=== PATIENT | male | born 1960 | race Caucasian/White ===

== ENCOUNTER → 2018-12-26 08:13 | Outpatient (CLI) | payer MEDICARE, SELFPAY ==
--- NOTE | 2018-12-26 08:20 | US_ITS ---
PROCEDURE: US SOFT TISSUE HEAD AND NECK CLINICAL INDICATION: LIPOMA Palpable area along posterior neck COMPARISON: No exams were available for comparison FINDINGS: There is a spindle shaped 3 by 0.9 x 3 cm area of heterogeneous echogenicity in the subcutaneous region at the palpable abnormality. This is somewhat hypoechoic with linear areas of increased echogenicity and may represent a lipoma. This could be confirmed with CT if clinically warranted. 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
== END ==
PROVIDERS: PCP Family Medicine; Visit Provider Family Medicine
DX: D17.1 Benign lipomatous neoplasm of skin and subcutaneous tissue of trunk (principal)
CPT/HCPCS: 76536

== ENCOUNTER → 2020-12-09 11:31 | Outpatient (CLI) | payer MEDICARE, SELFPAY ==
[2020-12-09 11:53] LABS: Basophils % 0.5 % (0.1-2.0); Eosinophils # 0.1 K/mm3 (0.0-0.4); Eosinophils % 2.1 % (0.1-12.0); Hematocrit 53.6 % (42.0-52.0); Hemoglobin 17.6 g/dL (14.1-18.0); Lymphocytes # 2.3 K/mm3 (0.7-4.5); Lymphocytes % 36.9 % (10-50); Mean Corpuscular HGB Conc 32.8 g/dL (31.8-35.4); Mean Corpuscular Hemoglobin 30.7 pg (27.0-31.2); Mean Corpuscular Volume 93.6 fl (80-94); Mean Platelet Volume 9.7 fl (7.4-10.4); Monocytes # 0.4 K/mm3 (0.1-1.0); Monocytes % 6.4 % (1.7-9.3); Neutrophils # 3.3 K/mm3 (1.8-7.8); Neutrophils % 54.2 % (37.0-80.0); Platelet Count 198 K/mm3 (142-424); Red Blood Count 5.73 M/mm3 (4.60-6.20); Red Cell Distribution Width 12.5 % (11.5-17.5); White Blood Count 6.1 K/mm3 (4.8-10.8)
[2020-12-09 12:49] LABS: Alanine Aminotransferase 25 U/L (12-78); Albumin Level 4.1 g/dl (3.5-5.0); Albumin/Globulin Ratio 1.2 (1.1-1.8); Alkaline Phosphatase 71 U/L (38-126); Anion Gap 10.1 mEq/L (5-15); Aspartate Amino Transferase 28 U/L (17-59); Bilirubin,Total 0.5 mg/dl (0.2-1.3); Blood Urea Nitrogen 11 mg/dl (9-20); Calcium 9.6 mg/dl (8.4-10.2); Carbon Dioxide 31 mmol/L (22.0-30.0); Chloride 103 mmol/L (98-107); Cholesterol 205 mg/dl (140-200); Estimated Glomerular Filt Rate 98 ml/min (>60); GFR (African American) 119 ML/MIN (>60); Globulin 3.5 g/dL (1.3-3.2); Glucose 126 mg/dl (74-100); HDL Cholesterol 34 mg/dl (40-60); Potassium 5.1 mmoL/L (3.5-5.1); Sodium 139 mmol/L (136-145); Total Protein,Serum 7.6 g/dl (6.3-8.2); Triglycerides 355 mg/dl (30-150); VLDL Cholesterol 71 mg/dL (0-40)
[2020-12-09 12:51] LABS: Hemoglobin A1C 7.3 % (4.0-6.0)
[2020-12-09 13:00] LABS: Direct LDL Cholesterol 130.15 mg/dL (100-129)
[2020-12-16 18:09] LABS: QuantiFERON-TB Gold Plus Negative (Negative)
== END ==
PROVIDERS: Colon & Rectal Surgery; Visit Provider Family Medicine
DX: Z00.00 Encounter for general adult medical examination without abnormal findings (principal); E78.5 Hyperlipidemia, unspecified; K50.90 Crohn's disease, unspecified, without complications; Z79.899 Other long term (current) drug therapy
CPT/HCPCS: 36415; 80053; 80061; 83036; 85025; 86480

== ENCOUNTER → 2020-12-30 11:20 | Outpatient (POV) | payer MEDICARE, SELFPAY | PROVIDERS: Visit Provider Dermatology | DX: Z00.00 Encounter for general adult medical examination without abnormal findings (principal) ==

== ENCOUNTER → 2021-01-20 14:41 | Outpatient (POV) | payer MEDICARE, SELFPAY | PROVIDERS: Visit Provider Dermatology | DX: Z00.00 Encounter for general adult medical examination without abnormal findings (principal) ==

== ENCOUNTER → 2021-12-14 11:12 | Outpatient (CLI) | payer MEDICARE, SELFPAY ==
[2021-12-16 19:23] LABS: QuantiFERON-TB Gold Plus Negative (Negative)
== END ==
PROVIDERS: PCP Family Medicine; Visit Provider Colon & Rectal Surgery
DX: K51.90 Ulcerative colitis, unspecified, without complications (principal)
CPT/HCPCS: 36415; 86480

== ENCOUNTER → 2022-09-14 13:11 | Outpatient (POV) | payer MEDICARE, SELFPAY | PROVIDERS: Visit Provider Dermatology | DX: Z00.00 Encounter for general adult medical examination without abnormal findings (principal) ==

== ENCOUNTER → 2022-11-09 15:01 | Outpatient (POV) | payer MEDICARE, SELFPAY | PROVIDERS: Visit Provider Dermatology | DX: Z00.00 Encounter for general adult medical examination without abnormal findings (principal) ==

== ENCOUNTER 2023-11-14 16:36 | Emergency (ER) | payer MEDICARE, SELFPAY ==
--- NOTE | 2023-11-14 16:47 | ED_ITS ---
<Statement entered by Azeb Cahves DO - 11/14/23 23:09> I was consulted by the CRIS, and we discussed the complexity of the problems being addressed. I approved the treatment and management plan for this patient's care in the emergency department, thus performing a substantive portion of the medical decision making. Azeb Chaves DO Discharge Plan Disposition Patient Disposition: Home, Self-Care Condition: Good Prescriptions Prescriptions: New oxycodone 5 mg tablet 5 mg PO Q8H PRN (Reason: pain) Qty: 12 0RF ketorolac 10 mg tablet 10 mg PO Q6H PRN (Reason: pain) 5 Days Qty: 20 0RF ondansetron 4 mg tablet,disintegrating 4 mg PO Q6H PRN (Reason: nausea and vomiting) Qty: 10 0RF tamsulosin [Flomax] 0.4 mg capsule 0.4 mg PO DAILY Qty: 14 0RF Rx Instructions: Please take daily until expulsion of kidney stone No Action adalimumab [Humira(CF)] 40 mg/0.4 mL syringe kit 40 mg SUB-Q QWEEK Referrals Follow up/Referrals: Brandon Patrick MD [Primary Care Provider] - See instructions Matt Wilkins MD [Referring] - See instructions (Follow-up with urology provider.) Activity Restrictions/Add. Instructions Additional Instructions/Restrictions: Please follow-up with urology provider, call for appointment, please return to the emergency department any worsening signs or symptoms, take all medications as prescribed, take p.o. Flomax until resolution of kidney stone. Follow-up primary care provider. Clinical Impressions Clinical Impression: Right nephrolithiasis Instructions Patient Instructions: DI for Kidney Stones, DI for Acute Abdominal Pain Print Language Print Language: Portuguese Discharge ED Provider: Azeb Chaves General Adult HPI <JAILENE Mclean - Last Filed: 11/14/23 20:55> General Chief complaint: Abdominal Pain Stated complaint: abd pain Time Seen by Provider: 11/14/23 16:41 Mode of Arrival: Ambulatory Source of Information: Patient, Spouse and Medical Record Limitations: No Limitations History of Present Illness HPI narrative: 62-year-old male presents emergency department with RLQ abdominal pain, tenesmus, since approximately 9 AM this morning, patient has had p.o. intake, has had a bowel movement today, noted some diarrhea, denies any hematemesis, hematochezia or melena, denies any fever chills chest pain shortness of breath, denies any urinary type symptomatology, denies any nausea or vomiting currently, past medical history with Crohn's disease, currently on Humira infusions, last infusion was last Tuesday, sees a registered nurse ambulatory in [facility] for this, also prior history of rectal fistula repair in 2015, otherwise patient has no real remarkable past medical history, takes no other medications at home, patient does state that he took ibuprofen p.o., and used ice, this did relieve the pain for some time, however patient ate lunch , and the pain got worse, he describes it as a dull ache with some sharp shooting stabbing pain at times. He denies any alcohol, tobacco or drug use, initial triage vitals notable for, heart rate at 95 bpm, otherwise unremarkable Onset (ago): hour(s) Quality: stabbing, aching and dull Treatments prior to arrival: NSAID Related Data Home Medications ?Medication ?Instructions ?Recorded ?Confirmed adalimumab 40 mg/0.4 mL 40 mg SUB-Q QWEEK chrons 09/08/17 01/19/18 subcutaneous syringe kit (Humira(CF)) Previous Rx's ?Medication ?Instructions ?Recorded ketorolac 10 mg tablet 10 mg PO Q6H PRN pain 5 days #20 11/14/23 tabs ondansetron 4 mg disintegrating 4 mg PO Q6H PRN nausea and 11/14/23 tablet vomiting #10 tabs oxycodone 5 mg tablet 5 mg PO Q8H PRN pain #12 tabs 11/14/23 tamsulosin 0.4 mg capsule (Flomax) 0.4 mg PO DAILY #14 caps 11/14/23 Allergies Allergy/AdvReac Type Severity Reaction Status Date / Time No Known Allergies Allergy Verified 10/08/17 10:35 PFS <JAILENE Mclean - Last Filed: 11/14/23 20:55> [facility] Disclaimer: The information contained in this section may have been updated after the patient was seen, as this information can be updated by other users. Social History Smoking Status: Never smoker alcohol intake: never substance use type: denies use current occupational status: employed Travel in the last 8 weeks: None <JAILENE Mclean - Last Filed: 11/14/23 20:55> ROS Obtained: Yes All systems reviewed & no additional complaints except as documented Physical Exam <JAILENE Mclean - Last Filed: 11/14/23 20:55> General General appearance: alert and in no apparent distress Head Head exam: atraumatic and normocephalic Eye Eye exam: Present PERRL and EOMI ENT ENT exam: Present mucous membranes moist Neck Neck exam: Present normal inspection Chest Chest inspection: Present normal inspection and symmetric chest wall rise Respiratory Respiratory exam: Present normal lung sounds bilaterally; Absent respiratory distress Cardiovascular Cardiovascular exam: Present regular rate and normal rhythm Abdominal Exam Abdominal exam: Present soft, tenderness and guarding Abdominal tenderness: Present RLQ and moderate Comment: There is negative CVA tenderness bilaterally Extremities Exam Extremities exam: Present normal inspection Neurological Exam Neurological exam: Present alert and oriented X3 Psychiatric Psychiatric exam: Present normal affect Skin Skin exam: Present warm and dry Medical Decision Making <JAILENE Mclean - Last Filed: 11/14/23 20:55> Medical Records Medical records reviewed: Yes I reviewed the patient's medical records. Screening: Per USPSTF and CDC recommendations, given the prevalence of disease in our region, it is our hospital?s policy to screen for HIV and viral Hepatitis for all patients aged 18 and over and those with ongoing risk factors. Edison Inquiry Pt receiving controlled substance: Yes Edison was queried for this patient: No Risks and benefits of using a controlled substance: were discussed with pt by me Vital Signs: 11/14/23 16:53 11/14/23 17:00 11/14/23 17:40 Pulse Rate 97 H 103 H Pulse Rate [Right Brachial] 95 H Respiratory Rate 18 Blood Pressure 189/123 H 194/116 H Blood Pressure [Right Arm] 169/108 H Blood Pressure Mean 144 142 Blood Pressure Mean [Right Arm] 128 02 Sat by Pulse Oximetry 97 98 98 Oxygen Delivery Method Room Air Room Air Room Air 11/14/23 18:00 11/14/23 18:30 Pulse Rate 85 88 Pulse Rate [Right Brachial] Respiratory Rate Blood Pressure 182/119 H 189/107 H Blood Pressure [Right Arm] Blood Pressure Mean 135 134 Blood Pressure Mean [Right Arm] 02 Sat by Pulse Oximetry 95 98 Oxygen Delivery Method Room Air Room Air Lab Data Lab results reviewed: Yes I reviewed the patient's lab results. Lab Results 11/14/23 17:11: WBC 9.5, RBC 5.58, Hgb 17.1, Hct 51.5, MCV 92.3, MCH 30.5, MCHC 33.1, RDW 13.4, Plt Count 217, MPV 10.3, Neut % (Auto) 66.5, Lymph % (Auto) 26.6, [place] % (Auto) 4.5, Eos % (Auto) 1.7, Baso % (Auto) 0.7, Neut # (Auto) 6.3, Lymph # (Auto) 2.5, [place] # (Auto) 0.4, Eos # (Auto) 0.2, Baso # (Auto) 0.1, Sodium 136, Potassium 4.5, Chloride 109 H, Carbon Dioxide 18 L, Anion Gap 13.5, BUN 21 H, Creatinine 1.20, Estimated Creat Clear 101, Estimated GFR 61, Est GFR ( Amer) 74, Glucose 130 H, Lactate 1.7, Calcium 9.6, Magnesium 1.8, Total Bilirubin 0.7, AST 38, ALT 36, Alkaline Phosphatase 61, Total Protein 8.0, Albumin 4.5, Globulin 3.5 H, Albumin/Globulin Ratio 1.3, Lipase 166, HIV 1&2 Antibody Rapid Nonreactive 11/14/23 20:30: Urine Color Yellow, Urine Appearance Clear, Urine pH 5.5, Ur Specific [place] 1.020, Urine Protein Trace, Urine Glucose (UA) Negative, Urine Ketones 2+, Urine Blood 3+ A, Urine Nitrate Negative, Urine Bilirubin Negative, Urine Urobilinogen 0.2, Ur Leukocyte Esterase Negative 11/14/23 17:11 11/14/23 17:11 Orders (Tests/Meds): ED MEDICATIONS Generic Name Dose Route Start Last Admin Trade Name Freq PRN Reason Stop Dose Admin Sodium Chloride 10 ml 11/14/23 19:08 11/14/23 19:09 Sodium Chloride 0.9% 10ml Syr (Rad Only) IV 12/14/23 19:07 10 ml NEEDED PRN Administration Maintain IV Site Discontinued Medications Generic Name Dose Route Start Last Admin Trade Name Freq PRN Reason Stop Dose Admin Diatrizoate Meglum/Diatrizoate Sod 15 ml 11/14/23 16:47 11/14/23 17:16 Diatrizoate Silva 66% & Diatrizoate Na 10% 30ml Udc PO 11/14/23 16:48 15 ml ONCE ONE Administration Hydromorphone HCl 0.5 mg 11/14/23 17:35 11/14/23 17:39 Hydromorphone 2mg/Ml Syringe IV 11/14/23 17:36 0.5 mg ONCE ONE Administration Hydromorphone HCl 0.5 mg 11/14/23 18:27 11/14/23 18:56 Hydromorphone 2mg/Ml Syringe IV 11/14/23 18:28 0.5 mg ONCE ONE Administration Iopamidol 75 ml 11/14/23 19:08 11/14/23 19:09 Iopamidol-370 (76%);100ml Bottle IV 11/14/23 19:09 75 ml ONCE ONE Administration Ketorolac Tromethamine 15 mg 11/14/23 19:15 11/14/23 19:54 Ketorolac 30mg/Ml Vial IV 11/14/23 19:16 15 mg ONCE ONE Administration Morphine Sulfate 4 mg 11/14/23 16:59 11/14/23 17:16 Morphine 4mg/Ml Syringe IV 11/14/23 17:00 4 mg ONCE ONE Administration Ondansetron HCl 4 mg 11/14/23 17:00 11/14/23 17:16 Ondansetron 4mg/2ml Vial IV 11/14/23 17:01 4 mg ONCE ONE Administration ORDERS Category Date Time Status CT abdomen pelvis w con Stat Cat Scan 11/14/23 16:47 Completed Complete Blood Count Auto Diff Stat Lab 11/14/23 17:11 Completed Comprehensive Metabolic Panel Stat Lab 11/14/23 17:11 Completed HIV (1&2) Antibody Rapid Stat Lab 11/14/23 17:11 Completed Hep C Ab with Reflex to RNA Stat Lab 11/14/23 17:11 Received Lactic Acid Stat Lab 11/14/23 17:11 Completed Lipase Stat Lab 11/14/23 17:11 Completed Magnesium Stat Lab 11/14/23 17:11 Completed Urinalysis and Microscopic Stat Lab 11/14/23 20:30 Results Medical Decision Narrative: 62-year-old male presents the emergency with RLQ pain, tenesmus, differential diagnose include but not limited to IBD flare, cholecystitis, cholelithiasis, pancreatitis, abdominal fistula, colitis, ileitis, gastroenteritis, appendicitis, nephrolithiasis, ureterolithiasis, acute UTI, pyelonephritis. I discussed the patient's case with the attending physician Dr. Chaves Obtain CBC CMP, lactic acid, lipase, magnesium, urinalysis, will obtain CT abdomen pelvis without contrast further evaluation of characterization, as well as p.o. contrast Gastrografin, will give 4 mg IV Zofran for nausea, and 4 mg IV morphine for pain. CBC unremarkable I will give additional 0.5 mg Dilaudid dose IV for pain control. CMP is notable for hyperchloremia at 109, minimally elevated BUN at 21, lactic within normal limits, other electrolytes within normal limits, lipase within normal limits. I reviewed the patient's EKG along with the attending physician, NSR at 85 bpm, ID for within normals, QT interval within normal limits there is no STEMI. Will give additional dose of 0.5 mg IV Dilaudid for pain control, patient is still quite a bit of pain in the right lower quadrant. I along with the attending physician reviewed the patient's CT abdomen pelvis with and without contrast, as well as p.o. contrast, there appears to be a kidney stone, will give 15 mg IV Toradol for pain. I reviewed the patient's CT abdomen pelvis without contrast on the corresponding radiologic report, 5 mm distal right ureteral calculus with mild right hydronephrosis and hydroureter, cholelithiasis, calculus in the cystic duct is unchanged in comparison in 2018. Urinalysis is notable for hematuria, negative nitrites, negative leukocyte esterase. Reexamination of the patient, patient is feeling better after Toradol administration, has a 5 mm kidney stone, recommend follow-up with urology provider as directed, will prescribe patient Zofran as needed for nausea, p.o. narcotic, and Toradol p.o. as well as Flomax p.o, strict ED return precautions given to the patient and at the bedside, patient in agreement current treatment plan/discharge plan. Follow-up PCP as directed. Patient family understand agree with current treatment plan/discharge plan <Azeb Chaves, DO - Last Filed: 11/14/23 17:32> Vital Signs: 11/14/23 16:53 11/14/23 17:00 11/14/23 17:40 Pulse Rate 97 H 103 H Pulse Rate [Right Brachial] 95 H Respiratory Rate 18 Blood Pressure 189/123 H 194/116 H Blood Pressure [Right Arm] 169/108 H Blood Pressure Mean 144 142 Blood Pressure Mean [Right Arm] 128 02 Sat by Pulse Oximetry 97 98 98 Oxygen Delivery Method Room Air Room Air Room Air 11/14/23 18:00 11/14/23 18:30 Pulse Rate 85 88 Pulse Rate [Right Brachial] Respiratory Rate Blood Pressure 182/119 H 189/107 H Blood Pressure [Right Arm] Blood Pressure Mean 135 134 Blood Pressure Mean [Right Arm] 02 Sat by Pulse Oximetry 95 98 Oxygen Delivery Method Room Air Room Air Lab Data Lab Results 11/14/23 17:11: WBC 9.5, RBC 5.58, Hgb 17.1, Hct 51.5, MCV 92.3, MCH 30.5, MCHC 33.1, RDW 13.4, Plt Count 217, MPV 10.3, Neut % (Auto) 66.5, Lymph % (Auto) 26.6, [place] % (Auto) 4.5, Eos % (Auto) 1.7, Baso % (Auto) 0.7, Neut # (Auto) 6.3, Lymph # (Auto) 2.5, [place] # (Auto) 0.4, Eos # (Auto) 0.2, Baso # (Auto) 0.1, Sodium 136, Potassium 4.5, Chloride 109 H, Carbon Dioxide 18 L, Anion Gap 13.5, BUN 21 H, Creatinine 1.20, Estimated Creat Clear 101, Estimated GFR 61, Est GFR ( Amer) 74, Glucose 130 H, Lactate 1.7, Calcium 9.6, Magnesium 1.8, Total Bilirubin 0.7, AST 38, ALT 36, Alkaline Phosphatase 61, Total Protein 8.0, Albumin 4.5, Globulin 3.5 H, Albumin/Globulin Ratio 1.3, Lipase 166, HIV 1&2 Antibody Rapid Nonreactive 11/14/23 20:30: Urine Color Yellow, Urine Appearance Clear, Urine pH 5.5, Ur Specific [place] 1.020, Urine Protein Trace, Urine Glucose (UA) Negative, Urine Ketones 2+, Urine Blood 3+ A, Urine Nitrate Negative, Urine Bilirubin Negative, Urine Urobilinogen 0.2, Ur Leukocyte Esterase Negative Orders (Tests/Meds): ED MEDICATIONS Generic Name Dose Route Start Last Admin Trade Name Freq PRN Reason Stop Dose Admin Sodium Chloride 10 ml 11/14/23 19:08 11/14/23 19:09 Sodium Chloride 0.9% 10ml Syr (Rad Only) IV 12/14/23 19:07 10 ml NEEDED PRN Administration Maintain IV Site Discontinued Medications Generic Name Dose Route Start Last Admin Trade Name [place] PRN Reason Stop Dose Admin Diatrizoate Meglum/Diatrizoate Sod 15 ml 11/14/23 16:47 11/14/23 17:16 Diatrizoate Silva 66% & Diatrizoate Na 10% 30ml Udc PO 11/14/23 16:48 15 ml ONCE ONE Administration Hydromorphone HCl 0.5 mg 11/14/23 17:35 11/14/23 17:39 Hydromorphone 2mg/Ml Syringe IV 11/14/23 17:36 0.5 mg ONCE ONE Administration Hydromorphone HCl 0.5 mg 11/14/23 18:27 11/14/23 18:56 Hydromorphone 2mg/Ml Syringe IV 11/14/23 18:28 0.5 mg ONCE ONE Administration Iopamidol 75 ml 11/14/23 19:08 11/14/23 19:09 Iopamidol-370 (76%);100ml Bottle IV 11/14/23 19:09 75 ml ONCE ONE Administration Ketorolac Tromethamine 15 mg 11/14/23 19:15 11/14/23 19:54 Ketorolac 30mg/Ml Vial IV 11/14/23 19:16 15 mg ONCE ONE Administration Morphine Sulfate 4 mg 11/14/23 16:59 11/14/23 17:16 Morphine 4mg/Ml Syringe IV 11/14/23 17:00 4 mg ONCE ONE Administration Ondansetron HCl 4 mg 11/14/23 17:00 11/14/23 17:16 Ondansetron 4mg/2ml Vial IV 11/14/23 17:01 4 mg ONCE ONE Administration ORDERS Category Date Time Status CT abdomen pelvis w con Stat Cat Scan 11/14/23 16:47 Completed Complete Blood Count Auto Diff Stat Lab 11/14/23 17:11 Completed Comprehensive Metabolic Panel Stat Lab 11/14/23 17:11 Completed HIV (1&2) Antibody Rapid Stat Lab 11/14/23 17:11 Completed Hep C Ab with Reflex to RNA Stat Lab 11/14/23 17:11 Received Lactic Acid Stat Lab 11/14/23 17:11 Completed Lipase Stat Lab 11/14/23 17:11 Completed Magnesium Stat Lab 11/14/23 17:11 Completed Urinalysis and Microscopic Stat Lab 11/14/23 20:30 Results ECG Data Tracing #1: I reviewed this ECG and interpreted as documented below: Normal sinus rhythm with a ventricular rate of [address] changes concerning for ischemia. Normal intervals ECG initial impression date: 11/14/23 ECG initial impression time: 17:30 Critical Care <JAILENE Mclean - Last Filed: 11/14/23 20:55> Critical Care Time Critical Care Time: No
--- NOTE | 2023-11-14 16:47 | CT_ITS ---
PROCEDURE INFORMATION: Exam: CT Abdomen And Pelvis With Contrast Exam date and time: 11/14/2023 7:06 PM Age: 62 years old Clinical indication: Abdominal pain; Localized; Right; Additional info: Rlq abdominal pain, tenesmus, HX ibd and fistula TECHNIQUE: Imaging protocol: Computed tomography of the abdomen and pelvis with contrast. Radiation optimization: All CT scans at this facility use at least one of these dose optimization techniques: automated exposure control; mA and/or kV adjustment per patient size (includes targeted exams where dose is matched to clinical indication); or iterative reconstruction. Contrast material: ISOVUE; Contrast volume: 75 ml; Contrast route: IV; COMPARISON: [id number] CT abdomen pelvis w con 10/08/2017 1:20 PM FINDINGS: Tubes, catheters and devices: None noted. Lungs: Lung bases appear clear. Heart: No significant coronary calcifications. No cardiomegaly. No significant pericardial effusion. Liver: Normal. No mass. Gallbladder and biliary ducts: Cholelithiasis. Calculus in the cystic duct unchanged. No ductal dilation. Pancreas: Normal. No ductal dilation. Spleen: Normal. No splenomegaly. Adrenal glands: Normal. No mass. Kidneys and ureters: 5 mm distal right ureteral calculus with mild right hydronephrosis and hydroureter. Stomach and bowel: Unremarkable. No obstruction. No mucosal thickening. Appendix: No evidence of appendicitis. Intraperitoneal space: Unremarkable. No free air. No significant fluid collection. Retroperitoneal space: No significant retroperitoneal inflammatory changes are noted. Vasculature: Unremarkable. No abdominal aortic aneurysm. Lymph nodes: Unremarkable. No enlarged lymph nodes. Urinary bladder: Unremarkable as visualized. Reproductive: Unremarkable as visualized. Bones/joints: Vacuum disc L4-L5.. No acute fracture. Soft tissues: Unremarkable. IMPRESSION: 1. 5 mm distal right ureteral calculus with mild right hydronephrosis and hydroureter. 2. Cholelithiasis. 3. Calculus in the cystic duct, unchanged from comparison 10/08/2017.
[2023-11-14 16:53] VITALS: BP 169/108; PULSE 95; RESP 18; O2SAT 97; BMI 31.2
[2023-11-14 17:00] VITALS: BP 189/123; PULSE 97; O2SAT 98
[2023-11-14] MEDS: ONDANSETRON 4MG/2ML VIAL 4 MG IV (17:16)
[2023-11-14] MEDS: DIATRIZOATE MEG 66% & DIATRIZOATE NA 10% 30ML UDC 15 ML PO (17:16)
[2023-11-14] MEDS: MORPHINE 4MG/ML SYRINGE 4 MG IV (17:16)
--- NOTE | 2023-11-14 17:23 | HMH.ITSTN ---
per Mala in ER, pt finished oral contrast, will be ready to scan at 1850
--- NOTE | 2023-11-14 17:28 | ECG_ITS ---
APPROVED REPORT Exam: Resting ECG HR:85 bpm ECG Measurements Heart Rate 85 AXES CA 164 P 67 QRSd 98 QRS 18 QT 359 T 18 QTc 401 Conclusion SINUS RHYTHM NORMAL ECG Electronically signed by : ARYA NEWSOME, 11/14/2023 23:38:11
[2023-11-14 17:30] LABS: Basophils # 0.1 K/mm3 (0-0.2); Basophils % 0.7 % (0.1-2.0); Eosinophils # 0.2 K/mm3 (0.0-0.4); Eosinophils % 1.7 % (0.1-12.0); Hematocrit 51.5 % (42.0-52.0); Hemoglobin 17.1 g/dL (14.1-18.0); Lymphocytes # 2.5 K/mm3 (0.7-4.5); Lymphocytes % 26.6 % (10-50); Mean Corpuscular HGB Conc 33.1 g/dL (31.8-35.4); Mean Corpuscular Hemoglobin 30.5 pg (27.0-31.2); Mean Corpuscular Volume 92.3 fl (80-94); Mean Platelet Volume 10.3 fl (7.4-10.4); Monocytes # 0.4 K/mm3 (0.1-1.0); Monocytes % 4.5 % (1.7-9.3); Neutrophils # 6.3 K/mm3 (1.8-7.8); Neutrophils % 66.5 % (37.0-80.0); Platelet Count 217 K/mm3 (142-424); Red Blood Count 5.58 M/mm3 (4.60-6.20); Red Cell Distribution Width 13.4 % (11.5-17.5); White Blood Count 9.5 K/mm3 (4.8-10.8)
[2023-11-14] MEDS: HYDROMORPHONE 2MG/ML SYRINGE 0.5 MG IV ×2 (17:39→18:56)
[2023-11-14 17:40] VITALS: BP 194/116; PULSE 103; O2SAT 98
[2023-11-14 17:40] LABS: Albumin Level 4.5 g/dl (3.5-5.0); Chloride 109 mmol/L (98-107); Potassium 4.5 mmoL/L (3.5-5.1); Sodium 136 mmol/L (136-145)
[2023-11-14 17:42] LABS: Blood Urea Nitrogen 21 mg/dl (9-20); Creatinine Clearance Estimated 101 mL/min (50-200); Estimated Glomerular Filt Rate 61 ml/min (>60); GFR (African American) 74 ML/MIN (>60); Lactic Acid 1.7 mmol/L (0.7-2.1)
[2023-11-14 17:43] LABS: Alanine Aminotransferase 36 U/L (12-78); Albumin/Globulin Ratio 1.3 (1.1-1.8); Alkaline Phosphatase 61 U/L (38-126); Anion Gap 13.5 mEq/L (5-15); Aspartate Amino Transferase 38 U/L (17-59); Bilirubin,Total 0.7 mg/dl (0.2-1.3); Calcium 9.6 mg/dl (8.4-10.2); Carbon Dioxide 18 mmol/L (22.0-30.0); Globulin 3.5 g/dL (1.3-3.2); Glucose 130 mg/dl (74-100); Lipase 166 U/L (23-300); Magnesium 1.8 mg/dl (1.6-2.3)
[2023-11-14 18:00] VITALS: BP 182/119; PULSE 85; O2SAT 95
[2023-11-14 18:30] VITALS: BP 189/107; PULSE 88; O2SAT 98
[2023-11-14] MEDS: SODIUM CHLORIDE 0.9% 10ML SYR (RAD ONLY) 10 ML IV (19:09)
[2023-11-14] MEDS: IOPAMIDOL-370 (76%);100ML BOTTLE 75 ML IV (19:09)
[2023-11-14] MEDS: KETOROLAC 30MG/ML VIAL 15 MG IV (19:54)
[2023-11-14 20:05] LABS: HIV (1&2) Antibody Rapid NONREACTIVE (NONREACTIVE)
[2023-11-14 20:32] LABS: Microscopic, Urine URINE MICROSCOPIC (MICROSCOPIC)
[2023-11-14 20:34] LABS: Appearance,Urine CLEAR (Clear); Bilirubin,Urine Negative (Negative); Blood, Urine 3+ (Negative); Color,Urine YELLOW (Yellow); Glucose,Urine (UA) Negative (Negative); Ketones,Urine 2+ (Negative); Leukocyte Esterase,Urine Negative (Negative); Nitrate,Urine Negative (Negative); PH,Urine 5.5 (5.0-8.5); Protein,Urine TRACE (Negative); Urobilinogen,Urine 0.2 EU/dl (0.2)
[2023-11-14 20:47] LABS: Mucus,Urine Trace /lpf; RBC,Urine 20-50 #/hpf (0-3); Sperm,Urine 1+ /lpf; Squamous Epithelial Cell,Urine Occasional #/hpf (0-5); WBC,Urine Occasional #/hpf (0-3)
[2023-11-14 21:09] VITALS: BP 177/108; PULSE 91; RESP 16; TEMP 36.7; O2SAT 95
[2023-11-16 08:35] LABS: HCV Ab Non Reactive (Non Reactive)
== END 2023-11-14 21:10 | disposition home or self-care (01) ==
PROVIDERS: Physician Assistant; Emergency Provider Emergency Medicine; PCP Family Medicine
DX: R10.31 Right lower quadrant pain (principal); N13.0 Hydronephrosis with ureteropelvic junction obstruction; N13.4 Hydroureter
CPT/HCPCS: 74177; 80053; 81001; 83605; 83690; 83735; 85025; 86803; 87389; 93005; 96374; 96375; 96376; 99285; J1170; J1885; J2270; J2405; Q9963; Q9967